=== PATIENT | female | born 1980 | race Caucasian/White ===

== ENCOUNTER → 2019-01-29 | Outpatient (CLI) | payer OTHER ==
[2019-01-29 11:51] LABS: THYROID STIMULATING HORMONE 1.11 uIU/ML (0.358-3.740)
[2019-01-29 12:09] LABS: ESTRADIOL 365.7 PG/ML; PROGESTERONE 53.19 NG/ML
== END ==
LOC: M LAB 09:01
PROVIDERS: ATTEND Obstetrics & Gynecology Reproductive Endocrinology
DX: Z32.01 Encounter for pregnancy test, result positive (principal)

== ENCOUNTER → 2019-08-09 | Outpatient (CLI) | payer OTHER ==
--- NOTE | 2019-08-09 16:09 | REP ---
OB ULTRASOUND, TWIN GESTATION: Real-time sonographic evaluation of the gravid uterus is performed. There is a living diamniotic dichorionic twin gestation. Estimated gestational age is 32 weeks 0 days, EDC 10/04/2019. Placentas are on the right laterally as well as posteriorly and are grade 1 with no previa or abruption. Cervix is not well visualized due to low head position for fetus A. There is concordant growth of the twins. FETUS A: BPD 84 mm = 33 weeks 5 days, 75th percentile HC 292 mm = 32 weeks 1 day, 53rd percentile AC 265 mm = 30 weeks 5 days, 30th percentile FL 62 mm = 31 weeks 6 days, 49th percentile HC/AC ratio 1.10. Estimated weight 1767 grams, 32nd percentile. heart rate 128 beats per minute. Amniotic fluid within normal limits, deepest pocket of fluid is 4.2 cm. S/D ratio 2.55 and RI 0.61. Visualized anatomy today includes upper lip, four chamber heart, ventricular outflow tracts, stomach, kidneys, bladder and spine which are all grossly unremarkable. position vertex on the maternal right side. FETUS B: BPD 83 mm = 33 weeks 2 days, 68th percentile HC 293 mm = 32 weeks 2 days, 54th percentile AC 279 mm = 32 weeks 0 days, 50th percentile FL 60 mm = 31 weeks 3 days, 41st percentile HC/AC ratio 1.05. Estimated weight 1868 grams, 42nd percentile. heart rate 127 beats per minute. Amniotic fluid within normal limits, deepest pocket of fluid 3.9 cm. S/D ratio in the umbilical artery 2.47 and RI 0.59. Visualized anatomy today includes upper lip, four chamber heart, ventricular outflow tracts, stomach, kidneys and bladder which are grossly unremarkable. position is vertex on the maternal left side. Electronically Signed by Saran Coley MD 08/10/2019 09:30 A
== END ==
LOC: M RAD 11:51
PROVIDERS: ATTEND Obstetrics & Gynecology
DX: O30.043 Twin pregnancy, dichorionic/diamniotic, third trimester (principal); Z3A.31 31 weeks gestation of pregnancy

== ENCOUNTER → 2019-08-28 | Outpatient (CLI) | payer OTHER ==
--- NOTE | 2019-08-28 17:57 | REP ---
Clinical: Twin gestation. Comparison: 08/09/2019 . Findings: Examination demonstrates advanced diamniotic dichorionic twin gestation. Cervix appears closed. Concordant growth is noted. Gestational age by LMP at 34 weeks 5 days with estimated date of delivery 10/04/2019 . TWIN A: Twin A identified in cephalic presentation along the maternal right side. Placenta is noted right lateral and grade I I without evidence for placenta previa or abruption. motion is appreciated. Amniotic fluid volume is normal and the deepest pocket measures 4.7 cm. FHR equals 128 beats per minute. Gestational age by current biometrical measurements: 34 weeks 6 days . Umbilical cord SD ratio ( insertion): 2.31 Estimated weight 2322 grams ( 35th percentile). Limited anatomical assessment without obvious abnormality. ------- TWIN B: Twin B identified in cephalic presentation along the maternal left side. Placenta is noted right lateral and grade I I without evidence for placenta previa or abruption. motion is appreciated. Amniotic fluid volume is normal and the deepest pocket measures 2.7 cm. FHR equals 131 beats per minute. Gestational age by current biometrical measurements: 34 weeks 1 day . Umbilical cord SD ratio ( insertion): 2.65 Estimated weight 2478 grams ( 46 percentile). Limited anatomical assessment without obvious abnormality. Impression: Advanced diamniotic dichorionic twin gestation demonstrating appropriate concordant growth. No obvious gross abnormalities are identified. Electronically Signed by Chapin Weaver MD 08/28/2019 05:49 P
== END ==
LOC: M RAD 15:06
PROVIDERS: ATTEND Obstetrics & Gynecology
DX: O30.043 Twin pregnancy, dichorionic/diamniotic, third trimester (principal); Z3A.34 34 weeks gestation of pregnancy

== ENCOUNTER → 2019-09-04 | Outpatient (CLI) | payer OTHER ==
--- NOTE | 2019-09-05 04:17 | REP ---
Clinical: Twin gestation. well-being. Comparison: 08/28/2019 . Findings: Examination demonstrates advanced diamniotic dichorionic twin gestation. Gestational age by LMP at 35 weeks 5 days with estimated date of delivery 10/04/2019 . TWIN A: Twin A identified in cephalic presentation along the maternal lower midline side. Placenta is noted right lateral and grade I I without evidence for placenta previa or abruption. motion is appreciated. Amniotic fluid volume is normal and the deepest pocket measures 4.9 cm. FHR equals 124 beats per minute. Biophysical profile: 12/07 Umbilical cord Doppler SD ratio: 3.18 ------- TWIN B: Twin B identified in cephalic presentation along the maternal left side. Placenta is noted posterior and grade I I without evidence for placenta previa or abruption. motion is appreciated. Amniotic fluid volume is normal and the deepest pocket measures 3.7 cm. FHR equals 133 beats per minute. Biophysical profile: 8 Umbilical cord Doppler SD ratio: 3.65 Impression: Advanced diamniotic dichorionic twin gestation demonstrating normal biophysical profile score. Electronically Signed by Chapin Weaver MD 09/05/2019 04:08 A
== END ==
LOC: M RAD 14:55
PROVIDERS: ATTEND Obstetrics & Gynecology
DX: O30.043 Twin pregnancy, dichorionic/diamniotic, third trimester (principal); Z3A.35 35 weeks gestation of pregnancy

== ENCOUNTER → 2019-09-11 | Outpatient (CLI) | payer OTHER ==
[~2019-09-11] MED LIST: DIBU10OI TOP; DOCU100C16 PO; IBUP80TA PO; PRENCHW PO
--- NOTE | 2019-09-12 02:30 | REP ---
Clinical: Twin gestation. Growth evaluation Comparison: 09/04/2019 . Findings: Examination demonstrates advanced diamniotic dichorionic twin gestation. Cervix appears closed. Concordant growth is noted. Gestational age by LMP at 36 weeks 5 days with estimated date of delivery 10/04/2019 . TWIN A: Twin A identified in cephalic presentation along the maternal right presenting. motion is appreciated. Amniotic fluid volume is normal and the deepest pocket measures 4.2 cm. FHR equals 123 beats per minute. Biophysical profile score: 8/8 Gestational age by current measurements: 35 weeks 5 days . Estimated weight 2601 grams ( 27th percentile). Limited anatomical assessment without obvious abnormality. ------- TWIN B: Twin B identified in cephalic presentation along the maternal left side. motion is appreciated. Amniotic fluid volume is normal and the deepest pocket measures 4.2 cm. FHR equals 137 beats per minute. Biophysical profile score: 8/8 Gestational age by current measurements: 36 weeks 3 days . Estimated weight 2935 grams ( 48th percentile). Limited anatomical assessment without obvious abnormality. Impression: Advanced diamniotic dichorionic twin gestation demonstrating appropriate concordant growth. No gross abnormalities are identified. Electronically Signed by Chapin Weaver MD 09/12/2019 02:22 A
== END ==
LOC: M RAD 14:46
PROVIDERS: ATTEND Obstetrics & Gynecology
DX: O30.049 Twin pregnancy, dichorionic/diamniotic, unspecified trimester (principal)

== ENCOUNTER 2019-09-13 22:06 | Inpatient (IN) | payer OTHER ==
[~2019-09-13] VITALS: Ht 188 cm; Wt 102.8 kg
[2019-09-13] MEDS ORDERED: LR 1,000 ML IV SCH (23:01)
[2019-09-13] MEDS ORDERED: PENICILLIN G POTASSIUM IV 5 MU in D5W MINI-BAG PLUS 100 ML IV STA (23:01)
[2019-09-13] MEDS ORDERED: LACTATED RINGER'S 1000 ML IV STA (23:01)
[2019-09-13] MEDS ORDERED: FENTANYL 2MCG/ML ROPIVACAINE 0.2% IN 0.9% NACL 100ML IVBAG As Ordered ONE (23:15)
[2019-09-13 23:19] LABS: HEMOGLOBIN 10.4 g/dl (12.0-15.5); MEAN CORPUSCULAR HEMOGLOBIN 27.9 pg (27.0-33.0); MEAN CORPUSCULAR HGB CONC 32.5 g/dl (32.0-36.5); MEAN CORPUSCULAR VOLUME 85.8 fl (80.0-96.0); PLATELET COUNT, AUTOMATED 177 10^3/uL (150-450); RED BLOOD COUNT 3.73 10^6/uL (4.00-5.40); WHITE BLOOD COUNT 11.5 10^3/uL (4.0-10.0)
[2019-09-13 23:23] VITALS: BP 126/81
--- NOTE | 2019-09-13 23:27 | HPEPDOC ---
Obstetrical History & Physical General Date of Admission September 13, 2019 History of Present Illness Pia is a 39yo with di-di twin IUP at 37w0d by IUI dating presenting for CC of hearing a "pop" and feeling gush of fluid. Went to the bathroom and noted fluid was blood-tinged. Started having ctx in the car on the way here. Feels good movement. No f/c/n/v/CP/SOB. Chief Complaint: Contractions, term, LOF, term Information Provided By: Patient Care Care: Good Care Dating Final EDC: Oct 04, 2019 Final EDC by: LMP, 1st trimester (US) Antepartum Course Diagnos(e)s Di-di twin gestation by femara/IUI, A1GDM well controlled, AMA (normal [id number] testing) Height (inches): 72 Pre- weight (lbs.): 175 Admission Weight (lbs.): 226 Change in Weight (lbs.): 51 Past Medical History Past Obstetrical History : Past Obstetrical History: Multigravida (2000 early sab no interventions, 08/24/01 uncomplicated at 38wk [id number] M, 03/10/06 uncomplicated at 37wk 8lb2oz M) BUTTERMAKER CONTINUOUS CHURN History: No pertinent history Past Medical History Medical History benign Surgical History: Denies/None Family History Significant Family History: No pertinent family hx Social History Marital Status: Family situation: Spouse/partner home Psychosocial History: No pertinent psych hx * Smoker: non-smoker Alcohol: Denies Drugs: denies Imunizations Tdap status: current Influenza Status: current Physical Examination Physical Examination GENERAL: Alert and oriented times three. ABDOMEN: Gravid and non-tender to touch. FETUS: twin A is vertex (VTX) by sterile vaginal examination (SVE) and TAUS, twin B is vertex by TAUS EXTREMITIES: No edema of BLE Pertinent Laboratoy Data Blood Type: A+ RBC Antibody Screen: Negative HIV: Negative Hepatitis B: Negative Hepatitis C: Unknown Rapid Plasma Reagin: Nonreactive Rubella: Immune Varicella: Immune Chlamydia/Gonorrhea: Negative Group B Streptococcus: Positive (urine) Quad Screen Test: Negative ([id number]) Glucose Tolerance Test: 167 (3hr GTT 73/183/165/117) Anatomy Ultrasound Ultrasound Date: May 24, 2019 Placenta Location: Twin A (A: placenta posterior B: placenta posterofundal) Normal Anatomy: Yes (for both fetuses) Placenta Previa: No Other Ultrasounds 09/11/2019 growth scan at [facility]: twin A 27%ile and twin B 48%ile, both had BPP 8/8 and cephalic/cephalic Steroid Therapy Steroid Therapy: No Vaginal Examination Dilation: 3 cm Effacement: 90% Station: -2 Cervical Consistency: Soft Cervical Position: Anterior Presentation: Cephalic presentation (x2 by SCE and TAUS) Assessment Heart Rate (FHR): 120 (twin B 130's) Variability: Moderate (x2) Accelerations: Positive (x2) Decelerations: None Tocometer Contractions: Yes Frequency: regular, every 2-2 min. Duration: greater than 60 seconds Strength: palpated as strong Assessment/Plan Assessment Pia is a 39yo with di-di twin IUP at 37w0d by IUI dating with SROM/early labor having SCE 3/90/-2, grossly ruptured with clear/blood-tinged fluid. Ctx q2min. Cat I FHRT x2. Vitals wnl, benign exam. GBS positive by early urine. Cephalic/cephalic. course/PMhx significant for: Di-di twin gestation by femara/IUI, A1GDM well controlled, AMA (normal [id number] testing) Plan Admit and orient. Counseled and consented for . Previously discussed and re-addressed on admission the possibility of for twin A with subsequent need for for twin B, patient understands the risk. Plan for delivery in the OR when patient is ready to push. No augmentation at this time since patient is louise regularly after having SROM Diet: NPO Group B Streptococcus (GBS) positive: PCN per protocol Labs and intravenous (IV) per unit protocol. Lactated Ringers (LR): Bolus 500 mL, then at 125 mL/hr. Anticipate normal spontaneous delivery () Candidate for epidural Safe to proceed MD Hossein Castaneda Katrina D MD September 13, 2019 23:26
[2019-09-13] MEDS ORDERED: EPIDURAL/PCA KEYS XX PRN (23:47)
[2019-09-13] MEDS ORDERED: ONDANSETRON 4MG/2ML VIAL IV PRN (23:47)
[2019-09-13] MEDS ORDERED: LACTATED RINGER'S 1000 ML IV PRN (23:47)
[2019-09-13] MEDS ORDERED: FENTANYL/ROPIVACAINE/NACL BAG 100 ML EPIDURAL SCH (23:47)
[2019-09-13] MEDS ORDERED: diphenhydrAMINE 50MG/ML VIAL (J1200) IV PRN (23:47)
[2019-09-13] MEDS ORDERED: NALOXONE INJ 0.4MG/1ML VIAL (J2310 PER 1MG) IV PRN (23:47)
[2019-09-13] MEDS ORDERED: REFRIGERATOR IV KEYS XX PRN (23:47)
[2019-09-13] MEDS ORDERED: ePHEDrine SULFATE 25 MG/5 ML(5MG/ML) SYRINGE IV PRN (23:47)
[2019-09-13] MEDS ORDERED: EPIDURAL COMMENT XX SCH (23:47)
[2019-09-13 23:57] VITALS: BP 117/82
[2019-09-14] VITALS (24 sets, daily range): BP systolic 110–171; BP diastolic 58–124
--- NOTE | 2019-09-14 00:52 | IPNPDOC ---
Text Note Date of Service The patient was seen on 09/14/19. NOTE Intrapartum Note Went to room for FHR decel of twin A to 60's. Pt recently received epidural and is comfortable. Re-positioned her to her side, performed AROM of a forebag (SCE now 8/90/-2) with clear/bloody fluid noted and FSE placed. heart rate slowly improved back to baseline (nadired to 60's and recovered all over 5 minutes). Patient on her side with peanut ball in place now. Twin B has Cat I FHRT. Will continue to closely monitor. Safe to proceed. Dr. Lorene Catalan MD VS,Sally, I+O VS, Sally, I+O Laboratory Tests 09/13/19 23:12 Lorene Catalan MD September 14, 2019 00:52
[2019-09-14] MEDS ORDERED: OXYTOCIN 30 UNITS IN 0.9% NaCl 500ML IV BAG (J2590) As Ordered ONE (02:49)
[2019-09-14] MEDS ORDERED: PENICILLIN G POTASSIUM IV 2.5 MU in IV 1 EA IV SCH (03:30)
[2019-09-14] MEDS ORDERED: OXYTOCIN DRIP 30 UNITS in IV 1 EA IV SCH (03:51)
[2019-09-14] MEDS ORDERED: miSOPROStol 200 MCG TAB (S0191) PR ONE (04:00)
[2019-09-14] MEDS ORDERED: MEASLES,MUMPS,RUBELLA VACCINE INJ (MMR-II) (90707) SC SCH (04:00)
[2019-09-14] MEDS ORDERED: ACETAMINOPHEN TAB 650MG DOSE (2X325MG) PO PRN (04:00)
[2019-09-14] MEDS ORDERED: IBUPROFEN 800 MG TAB PO PRN (04:00)
[2019-09-14] MEDS ORDERED: DIBUCAINE 1% OINTMENT 30GM TOP PRN (04:00)
[2019-09-14] MEDS ORDERED: RHOGAM 300 MCG (1500 IU) INJ (J2790) IM SCH (04:00)
[2019-09-14] MEDS ORDERED: DOCUSATE SODIUM 100 MG CAP PO PRN (04:00)
[2019-09-14] MEDS: IBUPROFEN 600 MG TAB PO PRN ×2 (04:22→12:52)
--- NOTE | 2019-09-14 07:24 | DNPDOC ---
[facility] Delivery Note Delivery Note DATE OF DELIVERY: 14 Sep 2019 PREDELIVERY DIAGNOSIS: di-di twin gestation at 37w0d active labor POST DELIVERY DIAGNOSIS: Delivered. PROCEDURE: Spontaneous vaginal delivery MERCHANDISE HANDLER: Dr. Lorene Catalan MD ANESTHESIA: epidural ESTIMATED BLOOD LOSS: 400 mL. FINDINGS: Twin A: 5 pound 7 ounce (2480g) female , Score 9/9 Twin B: 6 pound 5 ounce (2850g) male , Score 9/9 DELIVERY SUMMARY: Pia is a 39yo [id number] s/p uncomplicated x2 at 0252 and 0255 on 09/14/19 when she presented to L&D in active labor with SROM at 37w0d. She was 3/90/-2 on admission, she received an epidural and progressed to C/C/0 at which point she began pushing. Within just a couple sets of pushes, twin A's head delivered OA, restituted PREMA. Left anterior shoulder delivered with ease followed by right posterior shoulder, then remainder of body delivered to maternal abdomen where was dried and stimulated; nose and mouth suctioned with bulb suction, strong, lusty cry, apgars 9/9. At 2 minutes of life, cord clamped x2 and cut by FOB. At that time I confirmed that twin B was presenting cephalic still, and allowed the uterus to contract and bring twin B lower. When twin B was at 0 station, AROM was performed with scant clear fluid noted. Within just a couple sets of pushes, twin B's head delivered OA, restituted SAMAN. Right anterior shoulder delivered with ease followed by posterior shoulder, then remainder of body delivered to maternal abdomen where infant was dried and stimulated; nose and mouth suctioned with bulb suction, strong, lusty cry, apgars 9/9. At 2 minutes of life, cord clamped x2 and cut by FOB. Upon inspection of vagina and perineum, a right labial laceration and small left labial abrasion were noted and repaired with 3-0 vicryl suture in usual fashion. Good cosmetic effect with total reapproximation and complete hemostasis noted. With uterine massage and traction on the cord, placentas (fused) delivered spontaneously and intact with 3 vessel centrally inserted cords. Pitocin bolus started with delivery of placentas. Fundus then firm at u-2cm with hemostasis noted. All counts correct x2. 800mcg cytotec placed rectally for prophylaxis against future bleeding. Mom and infants were doing well when I left the room. MD Hsosein Castaneda Katrina D MD September 14, 2019 07:24
[2019-09-14] MEDS: PRENATAL VITAMINS CHEWABLE TABLET PO SCH (08:33)
[2019-09-14] MEDS: ACETAMINOPHEN 500 MG TAB PO PRN (08:37)
--- NOTE | 2019-09-14 09:54 | IPN ---
DATE: 09/14/2019 This patient and requested circumcision of their male , twin B. After discussing risks and benefits of circumcision, the medical and nonmedical indications, the penile block and aftercare and bleeding, they expressed understanding of penile block, aftercare and bleeding. Signed the consent form. All questions were answered. 20-minute discussion. We await clearance by the roller mill tender.
[2019-09-15 06:00] VITALS: BP 121/74
[2019-09-15] MEDS: IBUPROFEN 600 MG TAB PO PRN ×2 (06:03→12:10)
[2019-09-15] MEDS ORDERED: IBUP80TA PO (07:46)
[2019-09-15] MEDS ORDERED: DOCU100C16 PO (07:46)
[2019-09-15] MEDS ORDERED: DIBU10OI TOP (07:46)
[2019-09-15] MEDS ORDERED: PRENCHW PO (07:46)
[2019-09-15] MEDS: PRENATAL VITAMINS CHEWABLE TABLET PO SCH (08:46)
[2019-09-15] MEDS: ACETAMINOPHEN 500 MG TAB PO PRN (14:53)
--- NOTE | 2019-09-16 18:19 | DSES ---
DATE OF ADMISSION: 09/13/2019 DATE OF DISCHARGE: 09/15/2019 This lady is a 39-year-old 4 now, para 4, admitted in labor at 37 weeks of gestation with contractions and loss of fluid, having dichorionic-diamniotic (di-di) twins. She had an epidural in place and delivered twin A, vertex female, scores of 9 and 9 at one and five minutes, respectfully, 2480 grams, 5 pounds 7 ounces. Then she delivered twin B, male, vaginally, scores of 9 and 9, 6 pounds 5 ounces, 2850 grams. Her risk factors are there was an intrauterine insemination (IUI). She has di-di twins, advanced maternal age (AMA), and aGDM 1, and she was admitted in labor. We discussed phlebitis, cystitis, mastitis, metritis, and cellulitis, diet, exercise, pain management, perineal, breast, and wound care. Her vital signs today on discharge: Her blood pressure 121/74, respirations are 17, pulse 65, temperature is 97.9. Her lab values: Hemoglobin on admission was 10.4, hematocrit 32.0, platelets were 177. On discharge, we discussed phlebitis, cystitis, mastitis, metritis, cellulitis, diet, exercise, pain management, perineal and breast care. Rest of the examination was unremarkable. Normocephalic, atraumatic. Neck: Full range of motion. Pupils equal and reactive to light. Distal pulses symmetric. No evidence of deep vein thrombosis (DVT), pulmonary embolism (PE), or superficial phlebitis. Chest is clear bilaterally to bases. No wheezes or rhonchi. No costovertebral angle (CVA) tenderness. No evidence of nausea, vomiting, diarrhea, or constipation. No urgency or frequency. We discussed getting her medications at [place], having a 6-week checkup at [facility], either virtual appointment or actual appointment, at which time discussion will take place regarding ongoing care. The patient was in aGDM 1, diet controlled. May have a 6-week glucose test to review the risk of permanent diabetes. The patient expressed understanding of same and was discharged improved.
== END 2019-09-15 15:00 | disposition home or self-care (01) | DRG 807 ==
LOC: M LDO 22:06 → M LDI 23:05 → M OBS 09-14 05:45
PROVIDERS: ADMIT Obstetrics & Gynecology; ATTEND Obstetrics & Gynecology
PROC: 10E0XZZ Delivery of Products of Conception, External Approach (ICD-10-PCS; principal; 2019-09-14)
PROC: 10E0XZZ Delivery of Products of Conception, External Approach (ICD-10-PCS; 2019-09-14)
DX: O30.049 Twin pregnancy, dichorionic/diamniotic, unspecified trimester (principal); Z37.2 Twins, both liveborn; Z3A.37 37 weeks gestation of pregnancy; O09.523 Supervision of elderly multigravida, third trimester

== ENCOUNTER 2019-09-21 11:08 | Emergency (ER) | payer OTHER ==
[~2019-09-21] VITALS: Ht 188 cm; Wt 88.0 kg
[2019-09-21] MEDS ORDERED: ACET-683 PO (11:19)
[2019-09-21] MEDS ORDERED: NS 1,000 ML IV ONE (12:00)
[2019-09-21 12:55] LABS: BASO % 0.5 % (0.0-1.0); EOS # 0.2 10^3/uL (0.0-0.5); HEMATOCRIT 30.1 % (36.0-47.0); HEMOGLOBIN 9.8 g/dl (12.0-15.5); LYMPH # 1.8 10^3/uL (1.5-5.0); LYMPH % 21.3 % (24.0-44.0); MEAN CORPUSCULAR HEMOGLOBIN 28.6 pg (27.0-33.0); MEAN CORPUSCULAR HGB CONC 32.6 g/dl (32.0-36.5); MEAN CORPUSCULAR VOLUME 87.8 fl (80.0-96.0); MONO # 0.6 10^3/uL (0.0-0.8); MONO % 7.2 % (0.0-5.0); NEUTROPHILS # 5.9 10^3/uL (1.5-8.5); NEUTROPHILS % 68.4 % (36.0-66.0); PLATELET COUNT, AUTOMATED 297 10^3/uL (150-450); RED BLOOD COUNT 3.43 10^6/uL (4.00-5.40); WHITE BLOOD COUNT 8.6 10^3/uL (4.0-10.0)
[2019-09-21 13:01] LABS: ALBUMIN 2.7 GM/DL (3.2-5.2); BILIRUBIN,DIRECT 0.2 MG/DL (0.0-0.2); BILIRUBIN,TOTAL 0.8 MG/DL (0.2-1.0)
[2019-09-21] MEDS ORDERED: KETO10TAB PO (13:45)
[2019-09-21] MEDS ORDERED: MACR100C43 PO (13:45)
--- NOTE | 2019-09-21 13:56 | REP ---
PELVIC ULTRASOUND: Real-time sonographic evaluation of pelvis performed utilizing transabdominal technique. Bladder is empty. The uterus measures 17.4 x 7.8 x 12.2 cm, enlarged. Endometrium is heterogeneous and thickened measuring 36 mm in AP dimension. The endometrial echocomplex is not hyperemic. Echotexture is heterogeneous and there is endometrial fluid present. Ovaries are normal in size and echotexture, right ovary measuring 3.0 x 2.4 x 2.7 cm, and left ovary 3.4 x 2.9 x 2.9 cm. There is no adnexal mass or free fluid. There is no evidence of ovarian torsion with duplex Doppler evaluation. IMPRESSION: Thickened endometrium at 36 mm along with endometrial fluid. Findings may indicate some degree of retained products of conception. Electronically Signed by Saran Coley MD 09/21/2019 03:54 P
[2019-09-21] MEDS ORDERED: KETOROLAC 30 MG/ML 1ML VIAL IV ONE (14:00)
[2019-09-21] MEDS ORDERED: miSOPROStol 200 MCG TAB (S0191) PR ONE (14:00)
[2019-09-21] MEDS ORDERED: miSOPROStol 200 MCG TAB (S0191) PO ONE (14:30)
[2019-09-21 14:49] VITALS: BP 150/71
== END 2019-09-21 14:55 | disposition home or self-care (01) ==
LOC: M ED 11:08
DX: O73.1 Retained portions of placenta and membranes, without hemorrhage (principal); N39.0 Urinary tract infection, site not specified
CPT/HCPCS: 76856; 80047; 80076; 81001; 83605; 83690; 85025; 87086; 93041; 93976; 96361; 96374; 99284; J1885